=== PATIENT | male | born 1935 | race Caucasian/White ===

== ENCOUNTER → 2017-03-13 | Outpatient (CLI) | payer OTHER, MEDICARE | LOC: BHFA 11:30 | PROVIDERS: ATTEND Internal Medicine Cardiovascular Disease | DX: R42 Dizziness and giddiness (principal) ==

== ENCOUNTER → 2017-03-14 | Outpatient (CLI) | payer OTHER, MEDICARE ==
[~2017-03-14] MED LIST: GADOBUTROL 10 ML VIAL IVP ONE
== END ==
LOC: FIMAGING 07:58
PROVIDERS: ATTEND Urology
DX: C61 Malignant neoplasm of prostate (principal)
CPT/HCPCS: 72197; 76377; A9585

== ENCOUNTER → 2018-09-01 | Outpatient (CLI) | payer OTHER, MEDICARE | LOC: BHFA 13:30 | PROVIDERS: ATTEND Internal Medicine Interventional Cardiology | DX: R00.2 Palpitations (principal); R42 Dizziness and giddiness ==

== ENCOUNTER 2018-09-10 09:31 | Day surgery (SDC) | payer OTHER, MEDICARE ==
[2018-09-10] MEDS ORDERED: ASPIRIN EC 325 MG TAB PO ONE (09:34)
[2018-09-10] MEDS ORDERED: diphenhydrAMINE 25 MG CAP PO ONE (09:34)
[2018-09-10] MEDS ORDERED: NS 1,000 ML IV ONE (09:34)
[2018-09-10] MEDS ORDERED: FAMOTIDINE 20 MG TAB PO ONE (09:34)
[2018-09-10] MEDS ORDERED: DIAZEPAM 5 MG TAB PO ONE (09:34)
[2018-09-10 10:13] LABS: PLATELET COUNT 239 10^3/uL (150-400)
[2018-09-10 10:20] LABS: INR 1.07 (0.83-1.16); PROTIME(PATIENT) 14.1 SEC (12.0-15.0)
[2018-09-10] MEDS ORDERED: VERAPAMIL 5 MG/2 ML VIAL ONE (10:29)
[2018-09-10] MEDS ORDERED: HEPARIN 10,000 UNIT/10 ML MDV (1,000 UNIT/ML) ONE (10:29)
[2018-09-10] MEDS ORDERED: fentaNYL 100 MCG/2 ML INJ ONE (10:29)
[2018-09-10] MEDS ORDERED: LIDOCAINE 1% 300 MG/30 ML SDV ONE (10:29)
[2018-09-10] MEDS ORDERED: MIDAZOLAM 2 MG/2 ML VIAL ONE (10:29)
[2018-09-10] MEDS ORDERED: IOPAMIDOL (ISOVUE-370) 150 ML BTL IV ONE (10:30)
--- NOTE | 2018-09-10 10:33 | PDHPUP ---
History & Physical Update H&P update statement: This history and physical update is based on an assessment of the patient which was completed after admission or registration (within 24 hours), but prior to the surgery/procedure. H&P update: H&P reviewed & patient examined, no change in patient's condition since H&P completed
--- NOTE | 2018-09-10 10:34 | PDPROPOC ---
Sedation Plan of Care Sedation Plan of Care: vital signs stable, mental status noted, patient educated of risks, benefits, alternatives, patient can tolerate sedation ASA Classification: ASA 2 Planned drugs: fentanyl, midazolam Mallampati Score: Class 1 Mallampati Reference Image: Patient passed 3-3-2 rule?: Yes
--- NOTE | 2018-09-10 11:22 | CPEKG ---
Test Reason : OPEN Blood Pressure : / mmHG Vent. Rate : 069 BPM Atrial Rate : 069 BPM P-R Int : 168 ms QRS Dur : 087 ms QT Int : 378 ms P-R-T Axes : -37 041 043 degrees QTc Int : 405 ms Sinus rhythm Minimal ST depression, inferior leads Confirmed by Alec Martinez ([id number]) on 09/10/2018 11:21:43 AM Referred By: Confirmed By:Alec Martinez
--- NOTE | 2018-09-10 11:31 | PDDXCAT ---
Diagnostic Cath Note - . Date: 09/10/18 [employer] Director [employer] Officer: Jordy Indication: Class I/II angina, intolerance to med therapy or failure to respond High-risk criteria on non-invasive testing: stress-induced moderate-size multiple perfusion defects - Procedure Access: right wrist Procedure: left heart catheterization, coronary angiography, left ventriculogram - Materials Left Heart Cath size: 5F Left Heart Cath materials: pigtail, other ([place] 4) - Findings-Left Heart Catheterization LM: Unobstructed LAD: Unobstructed LCX: Unobstructed RCA: Dominant: Unobstructed EDP: 10 mm of mercury LVEF: 64 Wall motion: Normal Complications: None Estimated blood loss: <50ml Closure method: TR Band Assessment: Nonobstructive coronary disease. Normal LV systolic function with normal filling pressures.
[2018-09-10] MEDS ORDERED: NITROGLYCERIN 0.4 MG BTL SL PRN (13:41)
[2018-09-10] MEDS ORDERED: ATROPINE SULFATE 1 MG/10 ML SYR IVP PRN (13:41)
[2018-09-10] MEDS ORDERED: ONDANSETRON 4 MG/2 ML VIAL IVP PRN (13:41)
[2018-09-10] MEDS ORDERED: OXYCODONE/APAP 5/325 TAB PO PRN (13:41)
[2018-09-10] MEDS ORDERED: HYDROCODONE/APAP 5/325 TAB PO PRN (13:41)
== END 2018-09-10 14:44 | disposition home or self-care (01) ==
LOC: FCATH 09:31
PROVIDERS: ATTEND Internal Medicine Interventional Cardiology
DX: I25.10 Atherosclerotic heart disease of native coronary artery without angina pectoris (principal); R94.39 Abnormal result of other cardiovascular function study; R42 Dizziness and giddiness; R97.20 Elevated prostate specific antigen [PSA]; E78.5 Hyperlipidemia, unspecified; Z85.46 Personal history of malignant neoplasm of prostate; Z86.010 Personal history of colon polyps; Z82.49 Family history of ischemic heart disease and other diseases of the circulatory system; Z88.2 Allergy status to sulfonamides
CPT/HCPCS: 93005; 93458; C1769; J1644; J2250; J3010; Q9967

== ENCOUNTER → 2018-12-24 | Outpatient (CLI) | payer OTHER, MEDICARE ==
[~2018-12-24] MED LIST changes: -GADOBUTROL 10 ML VIAL IVP ONE; +IOPAMIDOL (ISOVUE-300) 100 ML BTL ONE
== END ==
LOC: FIMAGING 09:13
PROVIDERS: ATTEND Urology
DX: C61 Malignant neoplasm of prostate (principal); R93.2 Abnormal findings on diagnostic imaging of liver and biliary tract; K80.20 Calculus of gallbladder without cholecystitis without obstruction
CPT/HCPCS: 74177; 78306; A9503; Q9967